=== PATIENT | female | born 1965 | race Caucasian/White ===

== ENCOUNTER → 2019-06-08 | Outpatient (CLI) | payer OTHER | LOC: HYPER 09:25 | DX: T81.89XD Other complications of procedures, not elsewhere classified, subsequent encounter (principal); T86.828 Other complications of skin graft (allograft) (autograft); L89.314 Pressure ulcer of right buttock, stage 4; L89.523 Pressure ulcer of left ankle, stage 3; G82.53 Quadriplegia, C5-C7 complete; G93.49 Other encephalopathy; N39.0 Urinary tract infection, site not specified; M79.10 Myalgia, unspecified site; M81.0 Age-related osteoporosis without current pathological fracture; M86.8X8 Other osteomyelitis, other site; G82.50 Quadriplegia, unspecified; R56.9 Unspecified convulsions; Y83.8 Other surgical procedures as the cause of abnormal reaction of the patient, or of later complication, without mention of misadventure at the time of the procedure; Y83.2 Surgical operation with anastomosis, bypass or graft as the cause of abnormal reaction of the patient, or of later complication, without mention of misadventure at the time of the procedure ==

== ENCOUNTER → 2019-06-30 | Outpatient (CLI) | payer OTHER | LOC: MRI 06-23 12:18 | DX: L89.314 Pressure ulcer of right buttock, stage 4 (principal); M16.0 Bilateral primary osteoarthritis of hip; M25.452 Effusion, left hip; M25.451 Effusion, right hip; M86.8X5 Other osteomyelitis, thigh ==

== ENCOUNTER → 2019-07-01 | Outpatient (CLI) | payer OTHER | LOC: HYPER 08:56 | DX: T86.828 Other complications of skin graft (allograft) (autograft) (principal); T81.89XD Other complications of procedures, not elsewhere classified, subsequent encounter; G82.53 Quadriplegia, C5-C7 complete; G93.49 Other encephalopathy; N39.0 Urinary tract infection, site not specified; M79.10 Myalgia, unspecified site; M81.0 Age-related osteoporosis without current pathological fracture; M86.8X9 Other osteomyelitis, unspecified sites; R56.9 Unspecified convulsions; L84 Corns and callosities; Y83.8 Other surgical procedures as the cause of abnormal reaction of the patient, or of later complication, without mention of misadventure at the time of the procedure; Y83.2 Surgical operation with anastomosis, bypass or graft as the cause of abnormal reaction of the patient, or of later complication, without mention of misadventure at the time of the procedure ==

== ENCOUNTER 2019-07-23 09:46 | Day surgery (SDC) | payer OTHER ==
[~2019-07-23] VITALS: Ht 147.3 cm; Wt 56.7 kg
[~2019-07-23 09:46] MED LIST: BACLOFEN20 MG PO; CALTRATE-600 W1 EACH PO; CENTRUM SILVER1 EAC6 PO; CLIMARA1 EAC3 TOP; CVS SUPER CRAN1 EACH PO; FISH OIL 1,2001 EAC3 PO; IRON18 M1 PO; MEDROXYPROGEST2.5 MG PO; NEURONTIN 300M300 M2 PO; NORCO 5-325 TA1 EAC1 PO; OXYBUTYNIN 5 MG5 M2 PO; TYLENOL325 M1 PO; VITAMIN D32000 UNIT PO; VITAMIN K100 MCG PO
[2019-07-23 10:17] LABS: HEMATOCRIT 31.1 % (37.0-47.0)
[2019-07-23 10:48] VITALS: BP 111/58
[2019-07-23 13:20] VITALS: BP 111/58
== END 2019-07-23 14:00 ==
LOC: OR 09:46 → TBA 09:47 → OR 11:01
PROVIDERS: Surgery
DX: L89.314 Pressure ulcer of right buttock, stage 4 (principal); T81.49XA Infection following a procedure, other surgical site, initial encounter; B95.2 Enterococcus as the cause of diseases classified elsewhere; Z98.890 Other specified postprocedural states; Y83.8 Other surgical procedures as the cause of abnormal reaction of the patient, or of later complication, without mention of misadventure at the time of the procedure; Z79.899 Other long term (current) drug therapy; Z98.51 Tubal ligation status
CPT/HCPCS: 50010; 50101; 50386; 57092; 57119; 57120; 62110; 62900; 70005

== ENCOUNTER → 2019-08-12 | Outpatient (CLI) | payer OTHER | LOC: HYPER 10:08 | DX: T86.828 Other complications of skin graft (allograft) (autograft) (principal); L89.314 Pressure ulcer of right buttock, stage 4; L89.523 Pressure ulcer of left ankle, stage 3; G82.53 Quadriplegia, C5-C7 complete; G93.49 Other encephalopathy; N39.0 Urinary tract infection, site not specified; M79.10 Myalgia, unspecified site; M81.0 Age-related osteoporosis without current pathological fracture; M86.8X8 Other osteomyelitis, other site; Y83.2 Surgical operation with anastomosis, bypass or graft as the cause of abnormal reaction of the patient, or of later complication, without mention of misadventure at the time of the procedure ==

== ENCOUNTER → 2019-08-31 | Outpatient (CLI) | payer OTHER | LOC: HYPER 10:03 | DX: T86.828 Other complications of skin graft (allograft) (autograft) (principal); L89.314 Pressure ulcer of right buttock, stage 4; L89.523 Pressure ulcer of left ankle, stage 3; G82.53 Quadriplegia, C5-C7 complete; N39.0 Urinary tract infection, site not specified; G93.49 Other encephalopathy; M81.0 Age-related osteoporosis without current pathological fracture; M46.28 Osteomyelitis of vertebra, sacral and sacrococcygeal region; Y83.2 Surgical operation with anastomosis, bypass or graft as the cause of abnormal reaction of the patient, or of later complication, without mention of misadventure at the time of the procedure ==

== ENCOUNTER → 2019-09-13 | Outpatient (CLI) | payer OTHER | LOC: HYPER 13:15 | DX: T86.828 Other complications of skin graft (allograft) (autograft) (principal); L89.314 Pressure ulcer of right buttock, stage 4; L89.523 Pressure ulcer of left ankle, stage 3; N39.0 Urinary tract infection, site not specified; G82.53 Quadriplegia, C5-C7 complete; M81.0 Age-related osteoporosis without current pathological fracture; M46.28 Osteomyelitis of vertebra, sacral and sacrococcygeal region; Y83.2 Surgical operation with anastomosis, bypass or graft as the cause of abnormal reaction of the patient, or of later complication, without mention of misadventure at the time of the procedure ==

== ENCOUNTER → 2019-09-30 | Outpatient (CLI) | payer OTHER | LOC: HYPER 11:40 | DX: T86.828 Other complications of skin graft (allograft) (autograft) (principal); L89.314 Pressure ulcer of right buttock, stage 4; L89.323 Pressure ulcer of left buttock, stage 3; G82.53 Quadriplegia, C5-C7 complete; G93.49 Other encephalopathy; N39.0 Urinary tract infection, site not specified; M79.10 Myalgia, unspecified site; M81.0 Age-related osteoporosis without current pathological fracture; M46.28 Osteomyelitis of vertebra, sacral and sacrococcygeal region; Z86.73 Personal history of transient ischemic attack (TIA), and cerebral infarction without residual deficits; Y83.2 Surgical operation with anastomosis, bypass or graft as the cause of abnormal reaction of the patient, or of later complication, without mention of misadventure at the time of the procedure ==

== ENCOUNTER → 2019-11-03 | Outpatient (CLI) | payer OTHER | LOC: HYPER 11:14 | DX: T86.828 Other complications of skin graft (allograft) (autograft) (principal); L89.314 Pressure ulcer of right buttock, stage 4; L84 Corns and callosities; G82.53 Quadriplegia, C5-C7 complete; G93.49 Other encephalopathy; N39.0 Urinary tract infection, site not specified; M86.8X8 Other osteomyelitis, other site; M79.10 Myalgia, unspecified site; M81.0 Age-related osteoporosis without current pathological fracture; Y83.2 Surgical operation with anastomosis, bypass or graft as the cause of abnormal reaction of the patient, or of later complication, without mention of misadventure at the time of the procedure ==

== ENCOUNTER → 2019-11-25 | Outpatient (CLI) | payer OTHER | LOC: HYPER 14:12 | DX: T86.828 Other complications of skin graft (allograft) (autograft) (principal); L89.314 Pressure ulcer of right buttock, stage 4; G82.53 Quadriplegia, C5-C7 complete; G93.49 Other encephalopathy; N39.0 Urinary tract infection, site not specified; M79.10 Myalgia, unspecified site; M81.0 Age-related osteoporosis without current pathological fracture; M86.8X8 Other osteomyelitis, other site; Y83.2 Surgical operation with anastomosis, bypass or graft as the cause of abnormal reaction of the patient, or of later complication, without mention of misadventure at the time of the procedure ==

== ENCOUNTER → 2019-12-22 | Outpatient (CLI) | payer OTHER | LOC: HYPER 13:54 | DX: T86.828 Other complications of skin graft (allograft) (autograft) (principal); L89.314 Pressure ulcer of right buttock, stage 4; L89.313 Pressure ulcer of right buttock, stage 3; L84 Corns and callosities; G82.53 Quadriplegia, C5-C7 complete; G93.49 Other encephalopathy; N39.0 Urinary tract infection, site not specified; M86.8X8 Other osteomyelitis, other site; M79.10 Myalgia, unspecified site; M81.0 Age-related osteoporosis without current pathological fracture; Y83.2 Surgical operation with anastomosis, bypass or graft as the cause of abnormal reaction of the patient, or of later complication, without mention of misadventure at the time of the procedure ==

== ENCOUNTER → 2020-01-05 | Outpatient (CLI) | payer OTHER | LOC: HYPER 07:58 | PROVIDERS: ATTEND Emergency Medicine | DX: T86.828 Other complications of skin graft (allograft) (autograft) (principal); L89.314 Pressure ulcer of right buttock, stage 4; L84 Corns and callosities; G82.53 Quadriplegia, C5-C7 complete; G93.49 Other encephalopathy; N39.0 Urinary tract infection, site not specified; M79.10 Myalgia, unspecified site; M81.0 Age-related osteoporosis without current pathological fracture; M86.8X8 Other osteomyelitis, other site; Y83.2 Surgical operation with anastomosis, bypass or graft as the cause of abnormal reaction of the patient, or of later complication, without mention of misadventure at the time of the procedure ==

== ENCOUNTER → 2020-02-01 | Outpatient (CLI) | payer OTHER | LOC: HYPER 07:43 | PROVIDERS: ATTEND Emergency Medicine | DX: T86.828 Other complications of skin graft (allograft) (autograft) (principal); L89.314 Pressure ulcer of right buttock, stage 4; L84 Corns and callosities; G82.53 Quadriplegia, C5-C7 complete; G93.49 Other encephalopathy; N39.0 Urinary tract infection, site not specified; M79.10 Myalgia, unspecified site; M81.0 Age-related osteoporosis without current pathological fracture; M86.8X8 Other osteomyelitis, other site; Y83.2 Surgical operation with anastomosis, bypass or graft as the cause of abnormal reaction of the patient, or of later complication, without mention of misadventure at the time of the procedure ==

== ENCOUNTER → 2020-02-29 | Outpatient (CLI) | payer OTHER | LOC: HYPER 11:23 | PROVIDERS: ATTEND Emergency Medicine | DX: T86.828 Other complications of skin graft (allograft) (autograft) (principal); T81.89XA Other complications of procedures, not elsewhere classified, initial encounter; L89.314 Pressure ulcer of right buttock, stage 4; L89.313 Pressure ulcer of right buttock, stage 3; L84 Corns and callosities; S81.812D Laceration without foreign body, left lower leg, subsequent encounter; G93.49 Other encephalopathy; G82.53 Quadriplegia, C5-C7 complete; N39.0 Urinary tract infection, site not specified; M86.8X8 Other osteomyelitis, other site; M79.10 Myalgia, unspecified site; M81.0 Age-related osteoporosis without current pathological fracture; X58.XXXD Exposure to other specified factors, subsequent encounter; Y92.238 Other place in hospital as the place of occurrence of the external cause; Y83.8 Other surgical procedures as the cause of abnormal reaction of the patient, or of later complication, without mention of misadventure at the time of the procedure; Y83.2 Surgical operation with anastomosis, bypass or graft as the cause of abnormal reaction of the patient, or of later complication, without mention of misadventure at the time of the procedure ==

== ENCOUNTER → 2020-03-30 | Outpatient (CLI) | payer OTHER | LOC: HYPER 09:10 | PROVIDERS: ATTEND Emergency Medicine | DX: T86.828 Other complications of skin graft (allograft) (autograft) (principal); L89.314 Pressure ulcer of right buttock, stage 4; L89.313 Pressure ulcer of right buttock, stage 3; S81.812D Laceration without foreign body, left lower leg, subsequent encounter; N39.0 Urinary tract infection, site not specified; G82.53 Quadriplegia, C5-C7 complete; G93.49 Other encephalopathy; M79.10 Myalgia, unspecified site; M81.0 Age-related osteoporosis without current pathological fracture; M46.28 Osteomyelitis of vertebra, sacral and sacrococcygeal region; X58.XXXD Exposure to other specified factors, subsequent encounter; Y83.2 Surgical operation with anastomosis, bypass or graft as the cause of abnormal reaction of the patient, or of later complication, without mention of misadventure at the time of the procedure ==

== ENCOUNTER → 2020-04-27 | Outpatient (CLI) | payer OTHER | LOC: HYPER 10:42 | PROVIDERS: ATTEND Emergency Medicine | DX: T86.828 Other complications of skin graft (allograft) (autograft) (principal); L89.314 Pressure ulcer of right buttock, stage 4; S81.812D Laceration without foreign body, left lower leg, subsequent encounter; G93.49 Other encephalopathy; G82.53 Quadriplegia, C5-C7 complete; N39.0 Urinary tract infection, site not specified; M79.10 Myalgia, unspecified site; M81.0 Age-related osteoporosis without current pathological fracture; M86.8X8 Other osteomyelitis, other site; X58.XXXD Exposure to other specified factors, subsequent encounter; Y83.2 Surgical operation with anastomosis, bypass or graft as the cause of abnormal reaction of the patient, or of later complication, without mention of misadventure at the time of the procedure ==

== ENCOUNTER → 2020-05-17 | Outpatient (CLI) | payer OTHER | LOC: HYPER 08:51 | PROVIDERS: ATTEND Emergency Medicine | DX: T86.828 Other complications of skin graft (allograft) (autograft) (principal); L89.314 Pressure ulcer of right buttock, stage 4; S81.812D Laceration without foreign body, left lower leg, subsequent encounter; L84 Corns and callosities; M86.8X8 Other osteomyelitis, other site; G93.49 Other encephalopathy; G82.53 Quadriplegia, C5-C7 complete; N39.0 Urinary tract infection, site not specified; M81.0 Age-related osteoporosis without current pathological fracture; M79.10 Myalgia, unspecified site; X58.XXXD Exposure to other specified factors, subsequent encounter; Y83.2 Surgical operation with anastomosis, bypass or graft as the cause of abnormal reaction of the patient, or of later complication, without mention of misadventure at the time of the procedure ==

== ENCOUNTER → 2020-06-08 | Outpatient (CLI) | payer OTHER | LOC: HYPER 13:05 | PROVIDERS: ATTEND Emergency Medicine | DX: T86.828 Other complications of skin graft (allograft) (autograft) (principal); L89.314 Pressure ulcer of right buttock, stage 4; S81.812D Laceration without foreign body, left lower leg, subsequent encounter; M86.8X8 Other osteomyelitis, other site; G82.53 Quadriplegia, C5-C7 complete; M79.10 Myalgia, unspecified site; G93.49 Other encephalopathy; N39.0 Urinary tract infection, site not specified; M81.0 Age-related osteoporosis without current pathological fracture; Y83.2 Surgical operation with anastomosis, bypass or graft as the cause of abnormal reaction of the patient, or of later complication, without mention of misadventure at the time of the procedure; X58.XXXD Exposure to other specified factors, subsequent encounter ==

== ENCOUNTER → 2020-07-06 | Outpatient (CLI) | payer OTHER | LOC: HYPER 14:17 | PROVIDERS: ATTEND Emergency Medicine | DX: T86.828 Other complications of skin graft (allograft) (autograft) (principal); T81.89XD Other complications of procedures, not elsewhere classified, subsequent encounter; L89.314 Pressure ulcer of right buttock, stage 4; S81.812D Laceration without foreign body, left lower leg, subsequent encounter; M46.28 Osteomyelitis of vertebra, sacral and sacrococcygeal region; M79.10 Myalgia, unspecified site; G82.53 Quadriplegia, C5-C7 complete; G93.49 Other encephalopathy; N39.0 Urinary tract infection, site not specified; M81.0 Age-related osteoporosis without current pathological fracture; Y83.2 Surgical operation with anastomosis, bypass or graft as the cause of abnormal reaction of the patient, or of later complication, without mention of misadventure at the time of the procedure; Y83.8 Other surgical procedures as the cause of abnormal reaction of the patient, or of later complication, without mention of misadventure at the time of the procedure; X58.XXXD Exposure to other specified factors, subsequent encounter ==

== ENCOUNTER → 2020-07-24 | Outpatient (CLI) | payer OTHER | LOC: HYPER 10:08 | PROVIDERS: ATTEND Emergency Medicine | DX: T86.828 Other complications of skin graft (allograft) (autograft) (principal); L89.314 Pressure ulcer of right buttock, stage 4; S81.812D Laceration without foreign body, left lower leg, subsequent encounter; L84 Corns and callosities; M46.28 Osteomyelitis of vertebra, sacral and sacrococcygeal region; M79.10 Myalgia, unspecified site; G82.53 Quadriplegia, C5-C7 complete; G93.49 Other encephalopathy; N39.0 Urinary tract infection, site not specified; M81.0 Age-related osteoporosis without current pathological fracture; X58.XXXD Exposure to other specified factors, subsequent encounter; Y83.2 Surgical operation with anastomosis, bypass or graft as the cause of abnormal reaction of the patient, or of later complication, without mention of misadventure at the time of the procedure ==

== ENCOUNTER → 2020-09-22 | Outpatient (CLI) | payer OTHER | LOC: LAB 09-21 10:10 | PROVIDERS: ATTEND Emergency Medicine | DX: Z01.812 Encounter for preprocedural laboratory examination (principal); Z20.822 Contact with and (suspected) exposure to COVID-19 ==

== ENCOUNTER → 2020-10-03 | Outpatient (CLI) | payer OTHER | LOC: HYPER 13:53 | PROVIDERS: ATTEND Emergency Medicine | DX: T86.828 Other complications of skin graft (allograft) (autograft) (principal); T81.89XD Other complications of procedures, not elsewhere classified, subsequent encounter; L89.314 Pressure ulcer of right buttock, stage 4; S81.812D Laceration without foreign body, left lower leg, subsequent encounter; G93.49 Other encephalopathy; G82.53 Quadriplegia, C5-C7 complete; M79.10 Myalgia, unspecified site; N39.0 Urinary tract infection, site not specified; M81.0 Age-related osteoporosis without current pathological fracture; M46.28 Osteomyelitis of vertebra, sacral and sacrococcygeal region; Z73.6 Limitation of activities due to disability; Z79.899 Other long term (current) drug therapy; X58.XXXD Exposure to other specified factors, subsequent encounter; Y83.2 Surgical operation with anastomosis, bypass or graft as the cause of abnormal reaction of the patient, or of later complication, without mention of misadventure at the time of the procedure; Y83.8 Other surgical procedures as the cause of abnormal reaction of the patient, or of later complication, without mention of misadventure at the time of the procedure ==

== ENCOUNTER → 2020-10-25 | Outpatient (CLI) | payer OTHER | LOC: HYPER 13:24 | PROVIDERS: ATTEND Emergency Medicine | DX: T86.828 Other complications of skin graft (allograft) (autograft) (principal); L89.314 Pressure ulcer of right buttock, stage 4; S81.812D Laceration without foreign body, left lower leg, subsequent encounter; L84 Corns and callosities; G93.49 Other encephalopathy; G82.53 Quadriplegia, C5-C7 complete; M79.10 Myalgia, unspecified site; N39.0 Urinary tract infection, site not specified; M81.0 Age-related osteoporosis without current pathological fracture; M46.28 Osteomyelitis of vertebra, sacral and sacrococcygeal region; Z73.6 Limitation of activities due to disability; Z79.899 Other long term (current) drug therapy; X58.XXXD Exposure to other specified factors, subsequent encounter; Y83.2 Surgical operation with anastomosis, bypass or graft as the cause of abnormal reaction of the patient, or of later complication, without mention of misadventure at the time of the procedure ==

== ENCOUNTER 2020-12-06 06:37 | Day surgery (SDC) | payer OTHER ==
[~2020-12-06] VITALS: Ht 147.3 cm; Wt 49.9 kg
[~2020-12-06 06:37] MED LIST changes: +MOMETASONE FURO17 GM NASAL; +NYSTATIN15 G2 TOP; +PROLIA60 MG/1 ML SUBQ; +SPIRONOLACT/HCT1 TA1 PO
[2020-12-06 07:55] LABS: HEMATOCRIT 28.6 % (37.0-47.0)
[2020-12-06 12:51] VITALS: BP 87/57
== END 2020-12-06 11:00 | disposition home or self-care (01) ==
LOC: OR 06:37 → TBA 06:37 → OR 10:59
PROVIDERS: ATTEND Surgery
DX: L89.314 Pressure ulcer of right buttock, stage 4 (principal); F32.9 Major depressive disorder, single episode, unspecified; G82.50 Quadriplegia, unspecified; G93.49 Other encephalopathy; F41.9 Anxiety disorder, unspecified; Z98.890 Other specified postprocedural states; Z79.899 Other long term (current) drug therapy; Z20.822 Contact with and (suspected) exposure to COVID-19; Z98.51 Tubal ligation status
CPT/HCPCS: 50010; 50101; 50386; 50403; 57119; 57120; 62110; 62900; 70005

== ENCOUNTER → 2020-12-07 | Outpatient (CLI) | payer OTHER | LOC: HYPER 09:06 | PROVIDERS: ATTEND Emergency Medicine | DX: T86.828 Other complications of skin graft (allograft) (autograft) (principal); T81.89XD Other complications of procedures, not elsewhere classified, subsequent encounter; L89.314 Pressure ulcer of right buttock, stage 4; G82.53 Quadriplegia, C5-C7 complete; G93.49 Other encephalopathy; M46.28 Osteomyelitis of vertebra, sacral and sacrococcygeal region; M79.10 Myalgia, unspecified site; M81.0 Age-related osteoporosis without current pathological fracture; Z79.899 Other long term (current) drug therapy; Y83.2 Surgical operation with anastomosis, bypass or graft as the cause of abnormal reaction of the patient, or of later complication, without mention of misadventure at the time of the procedure; Y83.8 Other surgical procedures as the cause of abnormal reaction of the patient, or of later complication, without mention of misadventure at the time of the procedure ==

== ENCOUNTER → 2020-12-28 | Outpatient (CLI) | payer OTHER | LOC: HYPER 07:45 | PROVIDERS: ATTEND Emergency Medicine | DX: T86.828 Other complications of skin graft (allograft) (autograft) (principal); L89.314 Pressure ulcer of right buttock, stage 4; G82.53 Quadriplegia, C5-C7 complete; G93.49 Other encephalopathy; M79.10 Myalgia, unspecified site; G83.9 Paralytic syndrome, unspecified; M81.0 Age-related osteoporosis without current pathological fracture; M46.28 Osteomyelitis of vertebra, sacral and sacrococcygeal region; Z79.899 Other long term (current) drug therapy; Y83.2 Surgical operation with anastomosis, bypass or graft as the cause of abnormal reaction of the patient, or of later complication, without mention of misadventure at the time of the procedure ==

== ENCOUNTER → 2021-01-18 | Outpatient (CLI) | payer OTHER | LOC: HYPER 08:46 | PROVIDERS: ATTEND Emergency Medicine | DX: T86.828 Other complications of skin graft (allograft) (autograft) (principal); L89.314 Pressure ulcer of right buttock, stage 4; G82.53 Quadriplegia, C5-C7 complete; G93.49 Other encephalopathy; G83.9 Paralytic syndrome, unspecified; M79.10 Myalgia, unspecified site; M81.0 Age-related osteoporosis without current pathological fracture; M46.28 Osteomyelitis of vertebra, sacral and sacrococcygeal region; Y83.2 Surgical operation with anastomosis, bypass or graft as the cause of abnormal reaction of the patient, or of later complication, without mention of misadventure at the time of the procedure ==

== ENCOUNTER → 2021-03-01 | Outpatient (CLI) | payer OTHER | LOC: HYPER 07:40 | PROVIDERS: ATTEND Emergency Medicine | DX: T86.828 Other complications of skin graft (allograft) (autograft) (principal); L89.314 Pressure ulcer of right buttock, stage 4; G82.53 Quadriplegia, C5-C7 complete; G93.49 Other encephalopathy; M79.10 Myalgia, unspecified site; G83.9 Paralytic syndrome, unspecified; M81.0 Age-related osteoporosis without current pathological fracture; M46.28 Osteomyelitis of vertebra, sacral and sacrococcygeal region; Z79.899 Other long term (current) drug therapy; Y83.2 Surgical operation with anastomosis, bypass or graft as the cause of abnormal reaction of the patient, or of later complication, without mention of misadventure at the time of the procedure ==

== ENCOUNTER → 2021-03-22 | Outpatient (CLI) | payer OTHER | LOC: HYPER 09:17 | PROVIDERS: ATTEND Emergency Medicine | DX: T86.828 Other complications of skin graft (allograft) (autograft) (principal); L89.314 Pressure ulcer of right buttock, stage 4; L84 Corns and callosities; G82.53 Quadriplegia, C5-C7 complete; G93.49 Other encephalopathy; M79.10 Myalgia, unspecified site; G83.9 Paralytic syndrome, unspecified; M81.0 Age-related osteoporosis without current pathological fracture; M46.28 Osteomyelitis of vertebra, sacral and sacrococcygeal region; Y83.2 Surgical operation with anastomosis, bypass or graft as the cause of abnormal reaction of the patient, or of later complication, without mention of misadventure at the time of the procedure ==

== ENCOUNTER → 2021-05-15 | Outpatient (CLI) | payer OTHER | LOC: HYPER 09:30 | PROVIDERS: ATTEND Emergency Medicine | DX: T86.828 Other complications of skin graft (allograft) (autograft) (principal); L89.314 Pressure ulcer of right buttock, stage 4; L89.150 Pressure ulcer of sacral region, unstageable; L84 Corns and callosities; G82.53 Quadriplegia, C5-C7 complete; G93.49 Other encephalopathy; M79.10 Myalgia, unspecified site; G83.9 Paralytic syndrome, unspecified; M81.0 Age-related osteoporosis without current pathological fracture; M46.28 Osteomyelitis of vertebra, sacral and sacrococcygeal region; Y83.2 Surgical operation with anastomosis, bypass or graft as the cause of abnormal reaction of the patient, or of later complication, without mention of misadventure at the time of the procedure ==

== ENCOUNTER → 2021-05-28 | Outpatient (CLI) | payer OTHER ==
[~2021-05-28] MED LIST changes: +DOXYCYCLINE HY100 M3 PO; +LIDOCAINE1 EACH TOP; +PENICILLIN V P500 MG PO
== END ==
LOC: LAB 10:54
PROVIDERS: ATTEND Student in an Organized Health Care Education/Training Program
DX: Z01.812 Encounter for preprocedural laboratory examination (principal); Z20.822 Contact with and (suspected) exposure to COVID-19

== ENCOUNTER 2021-05-29 06:23 | Day surgery (SDC) | payer OTHER ==
[~2021-05-29] VITALS: Ht 147.3 cm; Wt 52.2 kg
[2021-05-29 07:20] VITALS: BP 132/63
[2021-05-29 08:37] LABS: CREATININE 0.6 mg/dL (0.6-1.0); POTASSIUM 4.4 mmol/L (3.5-5.1)
[2021-05-29 08:41] LABS: CALCIUM 12.1 mg/dL (8.5-10.1)
[2021-05-29 08:54] VITALS: BP 132/63
--- NOTE | 2021-06-01 11:07 | PATH ---
[facility] [address] [place] [address] PATHOLOGY RPT PROCEDURE Name: DAMARIS BLANC NOHEMI Room #: DEP [facility] M.R.#: [id number] Admission: 05/29/21 Date of : 61 Discharge: 05/29/21 Report #: [id number] Path Case #: [id number] [facility] Accession Number: [id number] . 01 Material submitted: . sacrum - SACRAL TISSUE . 01 Clinical history: . INCISION AND DRAINAGE SACRAL WOUND PRESSURE INJURY OF SKIN OF RIGHT BUTTOCK, UNSPECIFIED INJURY STAGE . 02 Diagnosis: Sacral tissue, excision: - Fibrovascular adipose tissue with acute and chronic inflammation, necrosis, and degenerative changes. - Negative for atypia or malignancy. (ANK:pit; 05/31/2021) QTP 05/31/2021 1159 Local . 02 Electronically signed: . Aminah Dempsey MD, Pathologist NPI- [id number] . 01 Gross description: . The specimen is received in formalin, labeled "Damaris Blanc, sacral tissue". Received is a segment of pale tarango to green-tarango skin with attached underlying soft tissue measuring 6.4 x 5.0 x 1.2 cm in greatest dimensions. The specimen is submitted representatively in cassette A1. (CAA; 05/30/2021) QA/[facility] 05/30/2021 0928 Local . 02 Pathologist provided ICD-10: M79.89 . 02 CPT . 607771 Specimen Comment: A courtesy copy of this report has been sent to [phone], [phone] Specimen Comment: [phone] Specimen Comment: Report sent to [facility] DR BECKETT Specimen Comment: A duplicate report has been generated due to demographic updates. Performed at: [address] [id number] MD [place] MD Phone: [phone] Performed at: 02 [address] [place] [address] PATHOLOGY RPT PROCEDURE Name: DAMARIS BLANC NOHEMI Room #: DEP [facility] M.R.#: [id number] Admission: 05/29/21 Date of : 61 Discharge: 05/29/21 Report #: [id number] Path Case #: [id number] [address] [id number] MD Yuni Rod MD Phone: [phone]
== END 2021-05-29 09:32 | disposition home or self-care (01) ==
LOC: OR → TBA 06:24 → OR 09:32
PROVIDERS: ATTEND Surgery
DX: L89.314 Pressure ulcer of right buttock, stage 4 (principal); L89.159 Pressure ulcer of sacral region, unspecified stage; T81.89XA Other complications of procedures, not elsewhere classified, initial encounter; I10 Essential (primary) hypertension; F32.9 Major depressive disorder, single episode, unspecified; F41.9 Anxiety disorder, unspecified; Z98.890 Other specified postprocedural states; Z79.899 Other long term (current) drug therapy; Y83.8 Other surgical procedures as the cause of abnormal reaction of the patient, or of later complication, without mention of misadventure at the time of the procedure
CPT/HCPCS: 50010; 50101; 50386; 50403; 57119; 57120; 62110; 62850; 70005

== ENCOUNTER → 2021-05-30 | Outpatient (CLI) | payer OTHER | LOC: HYPER 09:55 | PROVIDERS: ATTEND Emergency Medicine | DX: T86.828 Other complications of skin graft (allograft) (autograft) (principal); T81.89XD Other complications of procedures, not elsewhere classified, subsequent encounter; L89.150 Pressure ulcer of sacral region, unstageable; L89.314 Pressure ulcer of right buttock, stage 4; G93.49 Other encephalopathy; M79.10 Myalgia, unspecified site; G82.53 Quadriplegia, C5-C7 complete; G83.9 Paralytic syndrome, unspecified; M81.0 Age-related osteoporosis without current pathological fracture; M46.28 Osteomyelitis of vertebra, sacral and sacrococcygeal region; Z79.899 Other long term (current) drug therapy; Y83.2 Surgical operation with anastomosis, bypass or graft as the cause of abnormal reaction of the patient, or of later complication, without mention of misadventure at the time of the procedure; Y83.8 Other surgical procedures as the cause of abnormal reaction of the patient, or of later complication, without mention of misadventure at the time of the procedure ==

== ENCOUNTER → 2021-06-14 | Outpatient (CLI) | payer OTHER | LOC: HYPER 10:01 | PROVIDERS: ATTEND Emergency Medicine | DX: T86.828 Other complications of skin graft (allograft) (autograft) (principal); T81.89XD Other complications of procedures, not elsewhere classified, subsequent encounter; L89.314 Pressure ulcer of right buttock, stage 4; L89.150 Pressure ulcer of sacral region, unstageable; M46.28 Osteomyelitis of vertebra, sacral and sacrococcygeal region; G82.53 Quadriplegia, C5-C7 complete; G93.49 Other encephalopathy; M79.10 Myalgia, unspecified site; G83.9 Paralytic syndrome, unspecified; M81.0 Age-related osteoporosis without current pathological fracture; Z79.899 Other long term (current) drug therapy; Y83.2 Surgical operation with anastomosis, bypass or graft as the cause of abnormal reaction of the patient, or of later complication, without mention of misadventure at the time of the procedure; Y83.8 Other surgical procedures as the cause of abnormal reaction of the patient, or of later complication, without mention of misadventure at the time of the procedure ==

== ENCOUNTER → 2021-06-28 | Outpatient (CLI) | payer OTHER | LOC: HYPER 10:40 | PROVIDERS: ATTEND Emergency Medicine | DX: T86.828 Other complications of skin graft (allograft) (autograft) (principal); T81.89XD Other complications of procedures, not elsewhere classified, subsequent encounter; L89.314 Pressure ulcer of right buttock, stage 4; L89.154 Pressure ulcer of sacral region, stage 4; L84 Corns and callosities; M46.28 Osteomyelitis of vertebra, sacral and sacrococcygeal region; G82.53 Quadriplegia, C5-C7 complete; G93.49 Other encephalopathy; M79.10 Myalgia, unspecified site; G83.9 Paralytic syndrome, unspecified; M81.0 Age-related osteoporosis without current pathological fracture; Y83.8 Other surgical procedures as the cause of abnormal reaction of the patient, or of later complication, without mention of misadventure at the time of the procedure; Y83.2 Surgical operation with anastomosis, bypass or graft as the cause of abnormal reaction of the patient, or of later complication, without mention of misadventure at the time of the procedure ==

== ENCOUNTER → 2021-07-26 | Outpatient (CLI) | payer OTHER | LOC: HYPER 13:07 | PROVIDERS: ATTEND Emergency Medicine | DX: T86.828 Other complications of skin graft (allograft) (autograft) (principal); T81.89XD Other complications of procedures, not elsewhere classified, subsequent encounter; L89.314 Pressure ulcer of right buttock, stage 4; L89.154 Pressure ulcer of sacral region, stage 4; L84 Corns and callosities; M46.28 Osteomyelitis of vertebra, sacral and sacrococcygeal region; G82.53 Quadriplegia, C5-C7 complete; G93.49 Other encephalopathy; M79.10 Myalgia, unspecified site; G83.9 Paralytic syndrome, unspecified; M81.0 Age-related osteoporosis without current pathological fracture; Y83.8 Other surgical procedures as the cause of abnormal reaction of the patient, or of later complication, without mention of misadventure at the time of the procedure; Y83.2 Surgical operation with anastomosis, bypass or graft as the cause of abnormal reaction of the patient, or of later complication, without mention of misadventure at the time of the procedure ==

== ENCOUNTER → 2021-08-16 | Outpatient (CLI) | payer OTHER | LOC: HYPER 08:38 | PROVIDERS: ATTEND Emergency Medicine | DX: T86.828 Other complications of skin graft (allograft) (autograft) (principal); T81.89XD Other complications of procedures, not elsewhere classified, subsequent encounter; L89.314 Pressure ulcer of right buttock, stage 4; L89.154 Pressure ulcer of sacral region, stage 4; L84 Corns and callosities; M46.28 Osteomyelitis of vertebra, sacral and sacrococcygeal region; G82.53 Quadriplegia, C5-C7 complete; G93.49 Other encephalopathy; M79.10 Myalgia, unspecified site; G83.9 Paralytic syndrome, unspecified; M81.0 Age-related osteoporosis without current pathological fracture; Y83.8 Other surgical procedures as the cause of abnormal reaction of the patient, or of later complication, without mention of misadventure at the time of the procedure; Y83.2 Surgical operation with anastomosis, bypass or graft as the cause of abnormal reaction of the patient, or of later complication, without mention of misadventure at the time of the procedure ==